=== PATIENT | male | born 1995 | race African-American/Black ===

== ENCOUNTER 2017-05-08 05:24 | Emergency (ER) | payer OTHER ==
[~2017-05-08] VITALS: Ht 188 cm; Wt 84.5 kg
--- NOTE | 2017-05-08 08:11 | REP ---
Clinical: Trauma. Technique: AP, lateral, bilateral oblique views right foot . Findings: The osseous structures and joint spaces are intact and normal. There is no evidence for acute fracture or dislocation. Surrounding soft tissues are unremarkable. No subcutaneous emphysema or radiodense foreign body. Impression: Normal right foot series . No acute fracture or dislocation. Signed by Cecil Nelson MD 05/08/2017 08:02 A
[2017-05-08] MEDS ORDERED: IBUP80TA PO (08:39)
[2017-05-08 08:45] VITALS: BP 113/62
== END 2017-05-08 08:48 | disposition home or self-care (01) ==
LOC: M ED 05:24
DX: M79.671 Pain in right foot (principal); F17.210 Nicotine dependence, cigarettes, uncomplicated

== ENCOUNTER 2017-09-15 10:26 | Emergency (ER) | payer OTHER ==
[2017-09-15 11:00] LABS: BASO % 0.6 % (0.0-1.0); EOS # 0.1 10^3/uL (0.0-0.50); EOS % 2.7 % (0.0-3.0); HEMATOCRIT 44.4 % (42.0-52.0); HEMOGLOBIN 15.5 g/dl (13.5-17.5); IMMATURE GRANULOCYTE % 0.2 % (0-3.0); LYMPH # 1.7 10^3/uL (1.5-6.5); LYMPH % 35.3 % (24.0-44.0); MEAN CORPUSCULAR HEMOGLOBIN 30.4 pg (27.0-33.0); MEAN CORPUSCULAR HGB CONC 34.9 g/dl (32.0-36.5); MEAN CORPUSCULAR VOLUME 87.1 fl (80.0-96.0); MONO # 0.5 10^3/uL (0.0-0.8); MONO % 10.4 % (0.0-5.0); NEUTROPHILS # 2.4 10^3/uL (1.8-7.7); NEUTROPHILS % 50.8 % (36.0-66.0); PLATELET COUNT, AUTOMATED 252 10^3/uL (150-450); RED CELL DISTRIBUTION WIDTH 12.6 % (11.5-14.5); WHITE BLOOD COUNT 4.8 10^3/uL (4.0-10.0)
[2017-09-15] MEDS: NS 1,000 ML IV (11:02)
[2017-09-15] MEDS: MORPHINE 4 MG/ML 1ML VIAL (J2270) IV ×2 (11:02→11:39)
[2017-09-15] MEDS: ONDANSETRON 4MG/2ML VIAL (J2405) IV (11:02)
[2017-09-15] MEDS: GASTROGRAFIN SOLUTION 30ML PO ×2 (11:03→11:32)
[2017-09-15 11:28] LABS: ALBUMIN 4.5 GM/DL (3.2-5.2); ALBUMIN/GLOBULIN RATIO 1.29 (1.00-1.93); ALKALINE PHOSPHATASE 82 U/L (45-117); ALT/SGPT 39 U/L (12-78); ANION GAP 5 MEQ/L (8-16); AST/SGOT 25 U/L (7-37); BILIRUBIN,DIRECT 0.2 MG/DL (0.0-0.2); BILIRUBIN,TOTAL 0.8 MG/DL (0.2-1.0); BLOOD UREA NITROGEN 14 MG/DL (7-18); CALCIUM LEVEL 9.1 MG/DL (8.5-10.1); CARBON DIOXIDE LEVEL 30 MEQ/L (21-32); CHLORIDE LEVEL 107 MEQ/L (98-107); CREATININE FOR GFR 0.77 MG/DL (0.70-1.30); GLOMERULAR FILTRATION RATE > 60.0 (>60); GLUCOSE, FASTING 75 MG/DL (70-100); LIPASE 101 U/L (73-393); POTASSIUM SERUM 4.2 MEQ/L (3.5-5.1); SODIUM LEVEL 142 MEQ/L (136-145)
[2017-09-15] MEDS ORDERED: ISOVUE-370 76% 100ML VIAL (Q9967) As Ordered (11:53)
== END 2017-09-15 12:52 | disposition home or self-care (01) ==
LOC: M ED 10:26
DX: R10.31 Right lower quadrant pain (principal); F17.210 Nicotine dependence, cigarettes, uncomplicated
CPT/HCPCS: J2270

== ENCOUNTER 2020-03-31 09:04 | Emergency (ER) | payer OTHER ==
[~2020-03-31] VITALS: Ht 188 cm; Wt 95.5 kg
[~2020-03-31 09:04] MED LIST: IBUP80TA PO
[2020-03-31] MEDS ORDERED: NS 1,000 ML IV ONE (10:45)
[2020-03-31] MEDS ORDERED: KETOROLAC 30 MG/ML 1ML VIAL IV ONE (10:45)
[2020-03-31 11:00] LABS: BILIRUBIN,DIRECT 0.2 MG/DL (0.0-0.2); BILIRUBIN,TOTAL 0.7 MG/DL (0.2-1.0); TOTAL PROTEIN 7.4 GM/DL (6.4-8.2)
[2020-03-31] MEDS: GASTROGRAFIN SOLUTION 30ML PO SCH ×2 (11:21→12:15)
[2020-03-31 11:43] LABS: CK-MB VALUE MASS 4.5 NG/ML (<3.6); CPK CREATINE PHOSPHOKINASE 879 U/L (39-308); FREE T4 1.29 NG/DL (0.76-1.46); MB/CK RELATIVE INDEX 0.51 (< OR =4); TROPONIN I 0.02 NG/ML (< 0.10)
[2020-03-31 12:45] LABS: BASO % 0.6 % (0.0-1.0); EOS % 0.6 % (0.0-3.0); HEMATOCRIT 49.7 % (42.0-52.0); HEMOGLOBIN 16.5 g/dl (13.5-17.5); LYMPH # 1.4 10^3/uL (1.5-5.0); LYMPH % 21.4 % (24.0-44.0); MEAN CORPUSCULAR HEMOGLOBIN 29.5 pg (27.0-33.0); MEAN CORPUSCULAR HGB CONC 33.2 g/dl (32.0-36.5); MEAN CORPUSCULAR VOLUME 88.8 fl (80.0-96.0); MONO % 15.1 % (0.0-5.0); NEUTROPHILS % 61.7 % (36.0-66.0); PLATELET COUNT, AUTOMATED 305 10^3/uL (150-450); WHITE BLOOD COUNT 6.4 10^3/uL (4.0-10.0)
[2020-03-31] MEDS ORDERED: ISOVUE-370 76% 100ML VIAL As Ordered ONE (12:54)
--- NOTE | 2020-03-31 14:08 | REPVR ---
PROCEDURE INFORMATION: Exam: CT Abdomen And Pelvis With Contrast Exam date and time: 03/31/2020 1:25 PM Age: 24 years old Clinical indication: Abdominal pain; Localized; Left lower quadrant (llq); Additional info: Llq pain, 24y/o male, R/O ibd TECHNIQUE: Imaging protocol: Computed tomography of the abdomen and pelvis with intravenous contrast. Radiation optimization: All CT scans at this facility use at least one of these dose optimization techniques: automated exposure control; mA and/or kV adjustment per patient size (includes targeted exams where dose is matched to clinical indication); or iterative reconstruction. Contrast material: ISOVUE 370; Contrast volume: 100 ml; Contrast route: INTRAVENOUS (IV); COMPARISON: CT ABD/PEL W/IV ORAL CONTRAS 09/15/2017 11:59 AM FINDINGS: Lungs: Dependent atelectasis at right lung base. Liver: There is a diffuse decrease in hepatic parenchymal density, consistent with fatty infiltration. Gallbladder and bile ducts: The gallbladder is unremarkable. Pancreas: The pancreas is normal. Spleen: The spleen is normal. Adrenals: The adrenal glands are unremarkable. Kidneys and ureters: The kidneys are unremarkable. Stomach and bowel: There is no evidence of colonic or small bowel wall thickening or pericolonic inflammation. There is no evidence of bowel obstruction. Appendix: No evidence of appendicitis. Intraperitoneal space: Unremarkable. No free air. No significant fluid collection. Vasculature: The aorta is unremarkable. Lymph nodes: No evidence of lymphadenopathy. Urinary bladder: The bladder is unremarkable. Reproductive: Unremarkable as visualized. Bones/joints: Unremarkable. No acute fracture. Soft tissues: Unremarkable. IMPRESSION: No CT scan evidence of inflammatory bowel disease or other acute findings. Electronically signed by: Shirin Waller On 03/31/2020 14:08:17 PM
[2020-03-31 15:31] LABS: CK-MB VALUE MASS 3.7 NG/ML (<3.6); CPK CREATINE PHOSPHOKINASE 727 U/L (39-308); MB/CK RELATIVE INDEX 0.51 (< OR =4); TROPONIN I < 0.02 NG/ML (< 0.10)
[2020-03-31 15:46] LABS: HEPATITIS B SURFACE ANTIGEN NEGATIVE (NEGATIVE)
[2020-03-31 16:13] LABS: HEPATITIS B CORE ANTIBODY IGM NEGATIVE (NEGATIVE)
[2020-03-31 16:16] LABS: HEPATITIS A ANTIBODY IGM NEGATIVE (NEGATIVE)
[2020-03-31 16:19] VITALS: BP 132/65
--- NOTE | 2020-04-01 05:36 | ECGEPIP ---
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
--- NOTE | 2020-04-01 05:52 | ECGEPIP ---
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
== END 2020-03-31 16:20 | disposition home or self-care (01) ==
LOC: M ED 09:04
DX: E86.0 Dehydration (principal); R74.01 Elevation of levels of liver transaminase levels; R00.1 Bradycardia, unspecified
CPT/HCPCS: 74177; 80047; 80076; 81001; 82550; 82553; 83690; 84439; 84443; 84484; 85025; 85652; 86140; 86705; 86709; 86803; 87340; 93005; 96361; 96374; 99285; J1885; Q9963; Q9967